=== PATIENT | female | born 1995 | race Two or more races ===

== ENCOUNTER 2022-09-15 13:18 | Inpatient (IN) | payer MEDICAID ==
[~2022-09-15] VITALS: Ht 165.1 cm; Wt 50.0 kg
[2022-09-15] MEDS ORDERED: LORazepam 2 MG/ML VIAL IM ONE (14:00)
[2022-09-15] MEDS ORDERED: DiphenhydrAMINE HCL 50 MG/ML VIAL IM ONE (14:00)
[2022-09-15] MEDS ORDERED: HALOPERIDOL LACTATE 5 MG/ML VIAL IM ONE (14:00)
[2022-09-15 14:55] LABS: BASOPHILS % (AUTO) 0.5 % (0.0-2.0); EOSINOPHILS % (AUTO) 0.5 % (1.0-6.0); HEMATOCRIT 38.8 % (36-46); HEMOGLOBIN 12.7 g/dL (12.0-16.0); LYMPHOCYTES # (AUTO) 1.7 K/uL (1.0-4.8); LYMPHOCYTES % (AUTO) 14.7 % (22.0-44.0); MEAN CORPUSCULAR HEMOGLOBIN 30.2 pg (26.0-34.0); MEAN CORPUSCULAR HGB CONC 32.8 G/dL (31.0-37.0); MEAN CORPUSCULAR VOLUME 92 fL (80-100); MONOCYTES # (AUTO) 0.7 K/uL (0.1-1.0); MONOCYTES % (AUTO) 6.1 % (2.0-9.0); NEUTROPHILS # (AUTO) 8.8 K/uL (1.8-7.7); NEUTROPHILS % (AUTO) 78.2 % (40.0-70.0); PLATELET COUNT (AUTO) 363 K/uL (150-450); RED BLOOD CELL COUNT(AUTO) 4.22 MIL/uL (4.00-5.20); RED CELL DISTRIBUTION WIDTH 14.2 % (11.5-14.5)
[2022-09-15 15:04] LABS: COVID AG,FIA SOURCE NASAL SWAB
[2022-09-15 15:10] LABS: ANION GAP 15 mmol/L (8-16); CALCIUM, TOTAL 8.9 mg/dL (8.8-10.5); CARBON DIOXIDE 19 mmol/L (22-29); CHLORIDE 104 mmol/L (98-107); CREATININE 1.02 mg/dL (0.60-1.30); GLOMERULAR FILTR. RATE CALC > 60 mL/min (>60); GLUCOSE,RANDOM 72 mg/dL (70-110); POTASSIUM 3.6 mmol/L (3.5-5.1); SODIUM SERUM 138 mmol/L (136-145)
[2022-09-15 15:14] LABS: ALANINE AMINOTRANSFERASE 30 U/L (12-78); ALBUMIN 3.4 g/dL (3.4-5.0); ALKALINE PHOSPHATASE 74 U/L (46-116); ASPARTATE AMINOTRANSFERASE 29 U/L (15-37); BILIRUBIN,TOTAL 0.3 mg/dL (0.1-1.0); TOTAL PROTEIN, SERUM 7.2 g/dL (6.4-8.2)
[2022-09-15] MEDS ORDERED: ZOLPIDEM TARTRATE 10 MG TABLET PO PRN (15:30)
[2022-09-16 07:35] VITALS: BP 120/79
[2022-09-16] MEDS ORDERED: MAGNESIUM HYDROXIDE SUSPENSION 30 ML UDCUP PO PRN (08:45)
[2022-09-16] MEDS ORDERED: IBUPROFEN 400 MG TABLET PO PRN (08:45)
[2022-09-16] MEDS ORDERED: ACETAMINOPHEN 325 MG TABLET PO PRN (08:45)
[2022-09-16] MEDS ORDERED: CloNIDine HCL 0.1 MG TABLET PO PRN (08:45)
[2022-09-16] MEDS ORDERED: PETROLATUM,WHITE 28 GM JELLY TP PRN (08:45)
[2022-09-16] MEDS ORDERED: MAG HYDROX/AL HYDROX/SIMETH ES 30 ML SUSPENSION UDCUP PO PRN (08:45)
[2022-09-16] MEDS ORDERED: ONDANSETRON HCL 4 MG TABLET PO PRN (08:45)
[2022-09-16] MEDS ORDERED: DOCUSATE SODIUM 100 MG CAPSULE PO PRN (08:45)
[2022-09-16] MEDS ORDERED: GuaiFENesin/D-METHORPHAN [SUGAR-FREE] 200-20MG/10 ML SYRUP UDCUP PO PRN (08:45)
[2022-09-16] MEDS ORDERED: LOPERAMIDE HCL 2 MG CAPSULE PO PRN (08:45)
[2022-09-16] MEDS ORDERED: ALBUTEROL SULFATE HFA 90 MCG/PUFF 8 GM INHALER IH PRN (08:45)
[2022-09-16] MEDS: CEPHALEXIN MONOHYDRATE 500 MG CAPSULE PO SCH ×3 (08:47→17:07)
[2022-09-16] MEDS: SULFAMETHOX/TRIMETH DS 800-160 MG/TABLET PO SCH ×2 (08:47→17:07)
[2022-09-16] MEDS: LORazepam 2 MG TABLET PO PRN (09:44)
[2022-09-16] MEDS: QUEtiapine FUMARATE 100 MG TABLET PO PRN (09:45)
[2022-09-16] MEDS: ARIPiprazole 10 MG TABLET PO SCH (10:29)
[2022-09-16 20:39] VITALS: BP 105/65
[2022-09-17] MEDS ORDERED: MAGNESIUM HYDROXIDE SUSPENSION 30 ML UDCUP PO PRN (07:00)
[2022-09-17] MEDS ORDERED: PETROLATUM,WHITE 28 GM JELLY TP PRN (07:00)
[2022-09-17] MEDS ORDERED: MAG HYDROX/AL HYDROX/SIMETH ES 30 ML SUSPENSION UDCUP PO PRN (07:00)
[2022-09-17] MEDS ORDERED: GuaiFENesin/D-METHORPHAN [SUGAR-FREE] 200-20MG/10 ML SYRUP UDCUP PO PRN (07:00)
[2022-09-17] MEDS ORDERED: IBUPROFEN 400 MG TABLET PO PRN (07:00)
[2022-09-17] MEDS ORDERED: ACETAMINOPHEN 325 MG TABLET PO PRN (07:00)
[2022-09-17] MEDS ORDERED: LOPERAMIDE HCL 2 MG CAPSULE PO PRN (07:00)
[2022-09-17] MEDS ORDERED: CloNIDine HCL 0.1 MG TABLET PO PRN (07:00)
[2022-09-17] MEDS ORDERED: DOCUSATE SODIUM 100 MG CAPSULE PO PRN (07:00)
[2022-09-17] MEDS ORDERED: NICOTINE 14 MG/24 HOUR PATCH TD PRN (07:00)
[2022-09-17] MEDS ORDERED: ONDANSETRON HCL 4 MG TABLET PO PRN (07:00)
[2022-09-17] MEDS ORDERED: ALBUTEROL SULFATE HFA 90 MCG/PUFF 8 GM INHALER IH PRN (07:00)
[2022-09-17 08:13] VITALS: BP 110/80
[2022-09-17] MEDS: SULFAMETHOX/TRIMETH DS 800-160 MG/TABLET PO SCH ×2 (09:48→16:57)
[2022-09-17] MEDS: CEPHALEXIN MONOHYDRATE 500 MG CAPSULE PO SCH ×3 (09:48→16:57)
[2022-09-17] MEDS: ARIPiprazole 10 MG TABLET PO SCH (09:48)
[2022-09-17] MEDS: LORazepam 2 MG TABLET PO PRN ×2 (10:26→19:44)
[2022-09-17] MEDS: QUEtiapine FUMARATE 100 MG TABLET PO PRN (10:26)
[2022-09-17] MEDS: NICOTINE 14 MG/24 HOUR PATCH TD PRN (19:44)
[2022-09-18] MEDS: LORazepam 2 MG TABLET PO PRN ×2 (08:21→16:11)
[2022-09-18] MEDS: ARIPiprazole 10 MG TABLET PO SCH (08:22)
[2022-09-18] MEDS: SULFAMETHOX/TRIMETH DS 800-160 MG/TABLET PO SCH ×2 (08:22→16:54)
[2022-09-18] MEDS: CEPHALEXIN MONOHYDRATE 500 MG CAPSULE PO SCH ×3 (08:22→16:54)
[2022-09-18] MEDS: QUEtiapine FUMARATE 100 MG TABLET PO PRN (16:11)
[2022-09-18 20:00] VITALS: BP 114/72
[2022-09-19] MEDS: ARIPiprazole 10 MG TABLET PO SCH (08:13)
[2022-09-19] MEDS: QUEtiapine FUMARATE 100 MG TABLET PO PRN ×2 (08:14→16:16)
[2022-09-19] MEDS: LORazepam 2 MG TABLET PO PRN ×2 (08:14→16:16)
[2022-09-19] MEDS: SULFAMETHOX/TRIMETH DS 800-160 MG/TABLET PO SCH ×2 (08:14→16:16)
[2022-09-19] MEDS: CEPHALEXIN MONOHYDRATE 500 MG CAPSULE PO SCH ×3 (08:14→16:16)
[2022-09-19] MEDS: NICOTINE 14 MG/24 HOUR PATCH TD PRN (16:16)
[2022-09-20 07:36] LABS: HEMOGLOBIN A1C 5.6 % (3.8-5.6)
[2022-09-20 08:02] LABS: CHOL/HDL RATIO 4.4 (3.9-5.7)
[2022-09-20 08:03] LABS: FREE T4 (FREE THYROXINE) 0.77 ng/dL (0.76-1.46); THYROID STIMULATING HORMONE 1.1 uIU/mL (0.36-3.74)
[2022-09-20] MEDS: SULFAMETHOX/TRIMETH DS 800-160 MG/TABLET PO SCH (08:16)
[2022-09-20] MEDS: ARIPiprazole 10 MG TABLET PO SCH (08:16)
[2022-09-20] MEDS: CEPHALEXIN MONOHYDRATE 500 MG CAPSULE PO SCH (08:16)
[2022-09-20 08:20] VITALS: BP 119/76
[2022-09-20] MEDS ORDERED: ARIP10TA38 PO ×2 (11:08→14:43)
== END 2022-09-20 11:45 | disposition home or self-care (01) | DRG 750 ==
LOC: EMS 13:21 → UNDOADMIN 17:31 → 3EC 17:31 → B3A 09-16 02:45 → EDBD 09-16 02:45
PROVIDERS: ADMIT Psychiatry & Neurology Psychiatry; ATTEND Psychiatry & Neurology Psychiatry
DX: F20.0 Paranoid schizophrenia (principal); D72.829 Elevated white blood cell count, unspecified; G47.00 Insomnia, unspecified; Z20.822 Contact with and (suspected) exposure to COVID-19; Z59.00 Homelessness unspecified; Z78.1 Physical restraint status; Z79.899 Other long term (current) drug therapy; Z82.49 Family history of ischemic heart disease and other diseases of the circulatory system; Z82.5 Family history of asthma and other chronic lower respiratory diseases
CPT/HCPCS: 80053; 80061; 83036; 84439; 84443; 84703; 85025; 99291; G0480; J1200; J1630; J2060